=== PATIENT | male | born 1950 | race Caucasian/White ===

== ENCOUNTER → 2021-07-28 09:35 | Outpatient (CLI) | payer SELFPAY ==
[2021-07-28 12:06] LABS: Lithium 0.5 mmol/L (0.6-1.2)
== END ==
PROVIDERS: Referring Provider Psychiatry & Neurology Psychiatry; Visit Provider Psychiatry & Neurology Psychiatry
DX: F31.4 Bipolar disorder, current episode depressed, severe, without psychotic features (principal)
CPT/HCPCS: 36415; 80178

== ENCOUNTER → 2023-01-11 07:30 | Outpatient (CLI) | payer SELFPAY ==
[2023-01-11 08:45] LABS: Cholesterol 98 mg/dL (140-199); HDL Cholesterol 49 mg/dL (40-60); LDL Cholesterol Calculated 27 mg/dL (<100); Triglycerides 108 mg/dL (35-150)
== END ==
PROVIDERS: Referring Provider Internal Medicine Cardiovascular Disease; Visit Provider Internal Medicine Cardiovascular Disease
DX: E78.2 Mixed hyperlipidemia (principal)
CPT/HCPCS: 36415; 80061

== ENCOUNTER → 2024-01-25 07:18 | Outpatient (CLI) | payer MEDICARE, BC, SELFPAY ==
[2024-01-25 08:04] LABS: Hematocrit 43.1 % (41-53); Hemoglobin 14.9 g/dL (13.5-17.5); Mean Corpuscular HGB Conc 34.7 % (30-36); Mean Corpuscular Volume 86.5 fL (80-100); Platelet Count 238 X10^3/uL (150-400); Red Blood Cell Count 4.98 X10^6/uL (4.5-5.9); White Blood Cell Count 8.9 X10^3/uL (4.5-11.0)
[2024-01-25 08:17] LABS: Alanine Aminotransferase 25 IU/L (<50); Albumin 4.3 g/dL (3.5-5.0); Albumin Globulin Ratio 1.8 (1.0-2.8); Alkaline Phosphatase 76 U/L (38-126); Aspartate Aminotransferase 28 IU/L (17-59); Bilirubin Total 1.4 mg/dL (0.2-1.3); Bilirubin Unconjugated 1.1 mg/dL (0.0-1.1); Cholesterol 107 mg/dL (140-199); Globulin 2.4 g/dL (1.7-4.1); Glucose 108 mg/dL (80-110); HDL Cholesterol 48 mg/dL (40-60); HEMOLYSIS < 15 (0-50); LDL Cholesterol Calculated 40 mg/dL (<100); Total Protein 6.7 g/dL (6.3-8.2); Triglycerides 96 mg/dL (35-150)
[2024-01-25 08:27] LABS: Lithium 0.9 mmol/L (0.6-1.2)
== END ==
PROVIDERS: Referring Provider Registered Nurse Psychiatric/Mental Health, Adult; Visit Provider Registered Nurse Psychiatric/Mental Health, Adult
DX: F31.9 Bipolar disorder, unspecified (principal); F41.1 Generalized anxiety disorder
CPT/HCPCS: 36415; 80061; 80076; 80178; 82947; 83036; 85027

== ENCOUNTER → 2024-07-17 07:47 | Outpatient (CLI) | payer MEDICARE, BC, SELFPAY ==
[2024-07-17 08:56] LABS: Add Manual Diff / Slide Review NO; Basophils Absolute Auto 100 /uL (0-100); Basophils Percent Auto 0.9 % (0-2); Eosinophils Absolute Auto 600 /uL (0-450); Hematocrit 43.9 % (41-53); Lymphocytes Absolute Auto 1300 /uL (1100-4500); Lymphocytes Percent Auto 14.5 % (25-40); Mean Corpuscular HGB Conc 34.2 % (30-36); Mean Corpuscular Hemoglobin 30.8 PG (26-34); Mean Corpuscular Volume 89.9 fL (80-100); Monocytes Absolute Auto 700 /uL (0-900); Monocytes Percent Auto 7.7 % (3-14); Neutrophils Absolute Auto 6500 /uL (1500-7000); Neutrophils Percent Auto 69.9 % (50-75); Platelet Count 226 X10^3/uL (150-400); Red Blood Cell Count 4.88 X10^6/uL (4.5-5.9); Red Cell Distribution Width 12.9 % (11.6-14.8); White Blood Cell Count 9.2 X10^3/uL (4.5-11.0)
[2024-07-17 09:17] LABS: Alanine Aminotransferase 44 IU/L (<50); Albumin 4.1 g/dL (3.5-5.0); Albumin Globulin Ratio 1.7 (1.0-2.8); Alkaline Phosphatase 82 U/L (38-126); Aspartate Aminotransferase 36 IU/L (17-59); BUN Creatinine Ratio 20.8 (6-22); Bilirubin Total 1.1 mg/dL (0.2-1.3); Blood Urea Nitrogen 16 mg/dL (9-20); Calcium 9.6 mg/dL (8.4-10.2); Carbon Dioxide 28 mmol/L (22-32); Chloride 105 mmol/L (98-107); Cholesterol 133 mg/dL (140-199); Estimated Glomerular Filt Rate > 60 mL/min (>60); Globulin 2.4 g/dL (1.7-4.1); Glucose 101 mg/dL (80-110); HDL Cholesterol 54 mg/dL (40-60); HEMOLYSIS < 15 (0-50); LDL Cholesterol Calculated 54 mg/dL (<100); Potassium 4.7 mmol/L (3.4-5.1); Sodium 139 mmol/L (137-145); Total Protein 6.5 g/dL (6.3-8.2); Triglycerides 126 mg/dL (35-150)
[2024-07-17 09:20] LABS: Lithium 0.9 mmol/L (0.6-1.2)
[2024-07-17 09:34] LABS: Vitamin D 25 Hydroxy (D3) 39.6 ng/mL (30.0-100.0)
[2024-07-17 11:29] LABS: Appearance Urine UA CLEAR; Bilirubin Urine UA NEGATIVE (NEGATIVE); Color Urine UA YELLOW; Glucose Urine UA NEGATIVE (Negative); Ketones Urine UA NEGATIVE (NEGATIVE); Leukocyte Esterase Urine UA NEGATIVE (NEGATIVE); Nitrite Urine UA NEGATIVE (Negative); Occult Blood Urine UA NEGATIVE (Negative); Protein Urine UA NEGATIVE (Negative); Urobilinogen Urine UA 0.2 E.U./dL (0.2); pH Urine UA 7.5 (4.5-8.0)
[2024-07-17 11:33] LABS: Urine Volume 10mL (spun)
[2024-07-17 11:34] LABS: Bacteria Urine None Seen; Culture Indicated Urine Cult Not Indicated; RBC Urine None Seen (0-5/HPF); Squamous Epithelial Cell Urine None Seen (0-5/HPF); WBC Urine None Seen (0-5/HPF)
== END ==
DX: Z51.81 Encounter for therapeutic drug level monitoring (principal); I25.10 Atherosclerotic heart disease of native coronary artery without angina pectoris; F31.81 Bipolar II disorder; E55.9 Vitamin D deficiency, unspecified; Z95.5 Presence of coronary angioplasty implant and graft; L21.9 Seborrheic dermatitis, unspecified; I48.0 Paroxysmal atrial fibrillation; D72.829 Elevated white blood cell count, unspecified
CPT/HCPCS: 36415; 80053; 80061; 80178; 81001; 82306; 84443; 85025

== ENCOUNTER → 2024-12-30 11:30 | Outpatient (CLI) | payer MEDICARE, BC, SELFPAY ==
--- NOTE | 2024-12-30 11:32 | DI.RAD.S_ITS ---
PROCEDURE: XR CHEST 2V INDICATIONS: Acute cough TECHNIQUE: 2 views of the chest were acquired. COMPARISON: None. FINDINGS: Surgical changes and devices: Prior right shoulder reverse arthroplasty.. Lungs and pleura: Moderate size airspace opacity in right middle lobe is seen. Left lung is clear. No pleural effusions or pneumothorax. Mediastinum: Mediastinal contours are normal. Heart size is normal. Bones and chest wall: No suspicious bony abnormalities. Soft tissues appear unremarkable. IMPRESSION: Moderate to large right middle lobe infiltrate . No significant pleural effusion. No pneumothorax. Dictated by: Matteo Rosario M.D. on 12/30/2024 at 12:03 Approved by: Matteo Rosario M.D. on 12/30/2024 at 12:04
== END ==
PROVIDERS: PCP Family Medicine; Referring Provider Family Medicine; Visit Provider Family Medicine
DX: R05.1 Acute cough (principal); R50.9 Fever, unspecified; R91.8 Other nonspecific abnormal finding of lung field
CPT/HCPCS: 0241U; 71046

== ENCOUNTER → 2024-12-30 12:21 | Outpatient (ROUT) | payer MEDICARE, BC, SELFPAY ==
[2024-12-30 13:01] LABS: COVID-19 CEPHEID 4-PLEX PCR Negative (Negative); Influenza A - CEPHEID Flu A NEGATIVE (NEGATIVE); Influenza B - CEPHEID Flu B NEGATIVE (NEGATIVE); Respiratory Syncytial Virus Negative (Negative)
== END ==
PROVIDERS: PCP Family Medicine; Visit Provider Family Medicine
DX: R50.9 Fever, unspecified (principal); R05.1 Acute cough
CPT/HCPCS: 0241U

== ENCOUNTER 2024-12-31 04:36 | Emergency (ER) | payer MEDICARE, BC, SELFPAY ==
[2024-12-31] VITALS (27 sets, daily range): BP systolic 104–147; BP diastolic 55–77; PULSE 66–93; RESP 14–29; TEMP 36.5–36.6; O2SAT 93–99; BMI 25.8
--- NOTE | 2024-12-31 04:38 | EKG_ITS ---
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
--- NOTE | 2024-12-31 04:47 | ED_ITS ---
HPI - SOB/Dyspnea <Pedro Luis Ma DO - Last Filed: 12/31/24 09:09> General Chief Complaint: Shortness of Breath/Dyspnea Stated Complaint: SOB Time Seen by Provider: 12/31/24 04:39 Source: patient Mode of arrival: Ambulatory Limitations: no limitations History of Present Illness HPI Narrative: 74-year-old gentleman history of hypertension, dyslipidemia, CAD x1 stent, AFib presents with dry nonproductive nonbloody cough along with shortness of breath dyspnea on exertion over the weekend along with fever, chills, and body aches. Of note, had pneumonia week ago. He was seen by PCP yesterday which included a chest x-ray but did not know the results of his studies. He did take some leftover amoxicillin which did not help. Patient denies any active chest pain leg swelling or weight gain at this time. Other than what is stated 14 point review of system is negative Related Data Allergies Allergy/AdvReac Type Severity Reaction Status Date / Time Opioids - Morphine Analogues Allergy ITCHING Verified 12/31/24 06:05 Review of Systems <Pedro Luis Ma DO - Last Filed: 12/31/24 09:09> Review of Systems ROS Unobtainable: All systems reviewed & are unremarkable except as noted in HPI and below Patient History <Pedro Luis Ma DO - Last Filed: 12/31/24 09:09> Social History Smoking Status: Never smoker Smoking Status: Never smoker Exam <Pedro Luis Ma DO - Last Filed: 12/31/24 09:09> Narrative Exam Narrative: GENERAL: [74] year old patient appears stated age. Well-developed patient, in mild distress. HEAD: Atraumatic. Normocephalic. EYES: Pupils equal round and reactive. Extraocular motions intact. No scleral icterus. No injection or drainage. ENT: Nose without bleeding, purulent drainage. Throat without erythema, tonsillar hypertrophy or exudate. Airway patent. NECK: Trachea midline. Non tender CARDIOVASCULAR: Regular rate and rhythm without murmurs, gallops, or rubs. RESPIRATORY: R dry crackles No wheezes, rales, or rhonchi. GASTROINTESTINAL: Abdomen soft, non-tender, nondistended. EXTREMITIES: No edema or joint tenderness. BACK: Nontender without deformity or crepitance. No flank tenderness. NEURO: AOx3. SKIN: No rash or erythema of visible areas Initial Vital Signs Initial Vital Signs: Vital Signs Pulse Rate 76 12/31/24 04:41 Blood Pressure 147/71 H 12/31/24 04:41 Pulse Oximetry 97 12/31/24 04:41 <Yolanda Rouse MD - Last Filed: 12/31/24 15:09> Initial Vital Signs Initial Vital Signs: Vital Signs Pulse Rate 76 12/31/24 04:41 Blood Pressure 147/71 H 12/31/24 04:41 Pulse Oximetry 97 12/31/24 04:41 Course <Pedro Luis Ma DO - Last Filed: 12/31/24 09:09> Orders Ordered: ED Orders 12/31/24 06:54 Procalcitonin Stat Trop I [Troponin I] Stat 12/31/24 07:28 EKG-12 Lead Stat 12/31/24 08:34 EC echo doppler complete Stat 12/31/24 15:00 PTT [PTT Partial Thromboplastin Jass] Stat Discontinued Medications Albuterol/Ipratropium (Albuterol/Ipratropium 3 Ml Ampul) 3 ml INH NOW ONE Stop: 12/31/24 05:02 Last Admin: 12/31/24 05:10 Dose: 3 ml Documented By: ASHLEE Albuterol/Ipratropium (Albuterol/Ipratropium 3 Ml Ampul) 3 ml INH NOW ONE Stop: 12/31/24 05:21 Last Admin: 12/31/24 05:24 Dose: 3 ml Documented By: ASHLEE Aspirin (Aspirin Ec 325 Mg Tablet) 325 mg PO NOW ONE Stop: 12/31/24 06:13 Last Admin: 12/31/24 06:14 Dose: 325 mg Documented By: CLAIR Atorvastatin Calcium (Atorvastatin 20 Mg Tablet) 20 mg PO NOW ONE Stop: 12/31/24 11:17 Last Admin: 12/31/24 11:39 Dose: 20 mg Documented By: TREVER Heparin Sodium (Porcine) (Heparin 5,000 Unit/Ml Vial) 4,500 unit 60 unit/kg (4500 unit) IV NOW ONE Stop: 12/31/24 08:25 Last Admin: 12/31/24 08:48 Dose: 4,500 unit Documented By: ANDRES Ceftriaxone Sodium 1,000 mg/ (Sodium Chloride) 100 mls @ 200 mls/hr IV NOW ONE Stop: 12/31/24 05:02 Last Infusion: 12/31/24 05:41 Dose: Infused Documented By: Admin: 12/31/24 05:11 Dose: 200 mls/hr Documented By: CLAIR Azithromycin 500 mg/ Dextrose 250 mls @ 250 mls/hr IV NOW ONE Stop: 12/31/24 05:02 Last Infusion: 12/31/24 06:56 Dose: Infused Documented By: Admin: 12/31/24 05:40 Dose: 250 mls/hr Documented By: CLAIR Heparin Sodium/Dextrose (Heparin Drip) 25,000 unit in 500 mls @ 17.962 mls/hr IV CONT JAMAR; Protocol Last Titration: 12/31/24 12:36 Dose: 0 units/kg/hr, 0 mls/hr Documented By: TREVER Co-signed By: Admin: 12/31/24 08:49 Dose: 12.03 units/kg/hr, 18 mls/hr Documented By: ANDRES Co-signed By: TREVER Metoprolol Succinate (Metoprolol Er 25 Mg Tablet) 25 mg PO NOW ONE Stop: 12/31/24 11:15 Last Admin: 12/31/24 11:37 Dose: 25 mg Documented By: TREVER Vital Signs Vital signs: Vital Signs - 8 hr 12/31/24 07:29 12/31/24 07:30 12/31/24 07:30 Temperature Pulse Rate 77 76 Respiratory Rate 17 Blood Pressure 120/65 Pulse Oximetry 94 93 12/31/24 08:00 12/31/24 08:00 12/31/24 08:47 Temperature Pulse Rate 78 69 Respiratory Rate 14 Blood Pressure 120/63 Pulse Oximetry 95 12/31/24 09:00 12/31/24 09:30 12/31/24 10:00 Temperature Pulse Rate 71 66 72 Respiratory Rate 19 17 25 H Blood Pressure Pulse Oximetry 96 94 12/31/24 10:30 12/31/24 10:41 12/31/24 10:41 Temperature Pulse Rate 77 74 Respiratory Rate 29 H 16 Blood Pressure 131/73 Pulse Oximetry 96 95 12/31/24 11:00 12/31/24 11:23 12/31/24 11:23 Temperature Pulse Rate 75 71 Respiratory Rate 21 23 Blood Pressure 104/56 L Pulse Oximetry 94 96 12/31/24 11:24 12/31/24 11:30 12/31/24 11:30 Temperature Pulse Rate 68 Respiratory Rate 24 Blood Pressure 104/56 L 107/55 L Pulse Oximetry 95 12/31/24 11:37 12/31/24 11:39 12/31/24 11:39 Temperature Pulse Rate 71 70 Respiratory Rate Blood Pressure 116/65 116/65 Pulse Oximetry 96 12/31/24 12:00 12/31/24 12:00 12/31/24 12:30 Temperature Pulse Rate 74 67 Respiratory Rate 16 Blood Pressure 117/71 Pulse Oximetry 12/31/24 12:30 Temperature 97.7 F Pulse Rate Respiratory Rate Blood Pressure 118/77 Pulse Oximetry 99 <Yolanda Rouse MD - Last Filed: 12/31/24 15:09> Orders Ordered: ED Orders 12/31/24 06:54 Procalcitonin Stat Trop I [Troponin I] Stat 12/31/24 07:28 EKG-12 Lead Stat 12/31/24 08:34 EC echo doppler complete Stat 12/31/24 15:00 PTT [PTT Partial Thromboplastin Jass] Stat Discontinued Medications Albuterol/Ipratropium (Albuterol/Ipratropium 3 Ml Ampul) 3 ml INH NOW ONE Stop: 12/31/24 05:02 Last Admin: 12/31/24 05:10 Dose: 3 ml Documented By: ASHLEE Albuterol/Ipratropium (Albuterol/Ipratropium 3 Ml Ampul) 3 ml INH NOW ONE Stop: 12/31/24 05:21 Last Admin: 12/31/24 05:24 Dose: 3 ml Documented By: ASHLEE Aspirin (Aspirin Ec 325 Mg Tablet) 325 mg PO NOW ONE Stop: 12/31/24 06:13 Last Admin: 12/31/24 06:14 Dose: 325 mg Documented By: CLAIR Atorvastatin Calcium (Atorvastatin 20 Mg Tablet) 20 mg PO NOW ONE Stop: 12/31/24 11:17 Last Admin: 12/31/24 11:39 Dose: 20 mg Documented By: TREVER Heparin Sodium (Porcine) (Heparin 5,000 Unit/Ml Vial) 4,500 unit 60 unit/kg (4500 unit) IV NOW ONE Stop: 12/31/24 08:25 Last Admin: 12/31/24 08:48 Dose: 4,500 unit Documented By: ANDRES Ceftriaxone Sodium 1,000 mg/ (Sodium Chloride) 100 mls @ 200 mls/hr IV NOW ONE Stop: 12/31/24 05:02 Last Infusion: 12/31/24 05:41 Dose: Infused Documented By: Admin: 12/31/24 05:11 Dose: 200 mls/hr Documented By: CLAIR Azithromycin 500 mg/ Dextrose 250 mls @ 250 mls/hr IV NOW ONE Stop: 12/31/24 05:02 Last Infusion: 12/31/24 06:56 Dose: Infused Documented By: Admin: 12/31/24 05:40 Dose: 250 mls/hr Documented By: CLAIR Heparin Sodium/Dextrose (Heparin Drip) 25,000 unit in 500 mls @ 17.962 mls/hr IV CONT JAMAR; Protocol Last Titration: 12/31/24 12:36 Dose: 0 units/kg/hr, 0 mls/hr Documented By: TREVER Co-signed By: Admin: 12/31/24 08:49 Dose: 12.03 units/kg/hr, 18 mls/hr Documented By: ANDRES Co-signed By: TREVER Metoprolol Succinate (Metoprolol Er 25 Mg Tablet) 25 mg PO NOW ONE Stop: 12/31/24 11:15 Last Admin: 12/31/24 11:37 Dose: 25 mg Documented By: TREVER Vital Signs Vital signs: Vital Signs - 8 hr 12/31/24 07:29 12/31/24 07:30 12/31/24 07:30 Temperature Pulse Rate 77 76 Respiratory Rate 17 Blood Pressure 120/65 Pulse Oximetry 94 93 12/31/24 08:00 12/31/24 08:00 12/31/24 08:47 Temperature Pulse Rate 78 69 Respiratory Rate 14 Blood Pressure 120/63 Pulse Oximetry 95 12/31/24 09:00 12/31/24 09:30 12/31/24 10:00 Temperature Pulse Rate 71 66 72 Respiratory Rate 19 17 25 H Blood Pressure Pulse Oximetry 96 94 12/31/24 10:30 12/31/24 10:41 12/31/24 10:41 Temperature Pulse Rate 77 74 Respiratory Rate 29 H 16 Blood Pressure 131/73 Pulse Oximetry 96 95 12/31/24 11:00 12/31/24 11:23 12/31/24 11:23 Temperature Pulse Rate 75 71 Respiratory Rate 21 23 Blood Pressure 104/56 L Pulse Oximetry 94 96 12/31/24 11:24 12/31/24 11:30 12/31/24 11:30 Temperature Pulse Rate 68 Respiratory Rate 24 Blood Pressure 104/56 L 107/55 L Pulse Oximetry 95 12/31/24 11:37 12/31/24 11:39 12/31/24 11:39 Temperature Pulse Rate 71 70 Respiratory Rate Blood Pressure 116/65 116/65 Pulse Oximetry 96 12/31/24 12:00 12/31/24 12:00 12/31/24 12:30 Temperature Pulse Rate 74 67 Respiratory Rate 16 Blood Pressure 117/71 Pulse Oximetry 12/31/24 12:30 Temperature 97.7 F Pulse Rate Respiratory Rate Blood Pressure 118/77 Pulse Oximetry 99 MDM - SOB/Dyspnea <Pedro Luis Ma, DO - Last Filed: 12/31/24 09:09> Lab Data 12/31/24 04:52 12/31/24 04:52 Labs: Lab Results 12/31/24 12/31/24 Range/Units 04:52 06:54 WBC 18.3 H (4.5-11.0) X10^3/uL RBC 4.53 (4.5-5.9) X10^6/uL Hgb 13.6 (13.5-17.5) g/dL Hct 39.4 L (41-53) % MCV 86.8 (80-100) fL MCH 30.1 (26-34) PG MCHC 34.7 (30-36) % RDW 13.1 (11.6-14.8) % Plt Count 156 (150-400) X10^3/uL Neut % (Auto) 87.5 H (50-75) % Lymph % (Auto) 5.4 L (25-40) % Crowley % (Auto) 4.2 (3-14) % Eos % (Auto) 2.3 (2-4) % Baso % (Auto) 0.6 (0-2) % Neut # (Auto) 17812 H (0627-0452) /uL Lymph # (Auto) 1000 L (5886-7906) /uL Crowley # (Auto) 800 (0-900) /uL Eos # (Auto) 400 (0-450) /uL Baso # (Auto) 100 (0-100) /uL PT 11.1 (9.4-12.5) SECONDS INR 1.0 (0.9-1.3) APTT 38 H (25.1-36.5) SECONDS Sodium 137 (137-145) mmol/L Potassium 3.5 (3.4-5.1) mmol/L Chloride 106 (98-107) mmol/L Carbon Dioxide 23 (22-32) mmol/L BUN 19 (9-20) mg/dL Creatinine 0.85 (0.66-1.25) mg/dL Estimated GFR > 60 (>60) mL/min BUN/Creatinine Ratio 22.4 H (6-22) Glucose 111 H (70-99) mg/dL Lactate 0.9 (0.7-2.1) mmol/L Calcium 8.8 (8.4-10.2) mg/dL Magnesium 2.0 (1.6-2.3) mg/dL Total Bilirubin 1.5 H (0.2-1.3) mg/dL AST 33 (17-59) IU/L ALT 37 (<50) IU/L Alkaline Phosphatase 107 (38-126) U/L Total Creatine Kinase 25 L (55-170) U/L Troponin I 0.068 H 0.145 H* (0.01-0.034) ng/mL NT-Pro-B Natriuret Pep 361 (<450) pg/mL Total Protein 6.3 (6.3-8.2) g/dL Albumin 3.4 L (3.5-5.0) g/dL Globulin 2.9 (1.7-4.1) g/dL Albumin/Globulin Ratio 1.2 (1.0-2.8) Lipase 35 (23-300) U/L Procalcitonin 9.91 H (<0.5) ng/mL Imaging Data Chest x-ray: Radiologist's Impression: [address] [address] XRay Report Signed Patient: Malka Gomez MR#: [id number] : 1950 Acct:[id number] Age/Sex: 74 / M Date of Service: 12/30/24 Loc: RAD Accession Number: [id number] Procedure: XR chest 2V Ordering Provider: Rolly Yee MD PROCEDURE: XR CHEST 2V INDICATIONS: Acute cough TECHNIQUE: 2 views of the chest were acquired. COMPARISON: None. FINDINGS: Surgical changes and devices: Prior right shoulder reverse arthroplasty.. Lungs and pleura: Moderate size airspace opacity in right middle lobe is seen. Left lung is clear. No pleural effusions or pneumothorax. Mediastinum: Mediastinal contours are normal. Heart size is normal. Bones and chest wall: No suspicious bony abnormalities. Soft tissues appear unremarkable. IMPRESSION: Moderate to large right middle lobe infiltrate . No significant pleural effusion. No pneumothorax. Dictated by: Matteo Rosario M.D. on 12/30/2024 at 12:03 Approved by: Matteo Rosario M.D. on 12/30/2024 at 12:04 ECG Data Interpretation: NSR RBBB HR 75 HI 150 QRS [address]-t wave change MDM Narrative Medical decision making narrative: All lab work, vital signs, nurse triage note, medication list, EKG, and imaging studies all reviewed. Patient given 2 DuoNebs Rocephin 1 g 500 of Zithromax IV and aspirin 325 mg p.o. x1 patient has no active chest pain but only when he coughs. [place] [address] with a left shift, troponin of 0.068 BNP is 361. EKG showed heart rate of 75 normal sinus rhythm with a right bundle branch block but otherwise no ST-T wave changes. Chest x-ray completed showing right middle and lower lobe pulmonary infiltrate consistent with pneumonia. Differential diagnosis includes pneumonia, sepsis, type 2 [place], COVID, Flu, and RSV. Case signed out to to at shift change pending final disposition. <Yolanda Rouse MD - Last Filed: 12/31/24 15:09> Lab Data Labs: Lab Results 12/31/24 12/31/24 Range/Units 04:52 06:54 WBC 18.3 H (4.5-11.0) X10^3/uL RBC 4.53 (4.5-5.9) X10^6/uL Hgb 13.6 (13.5-17.5) g/dL Hct 39.4 L (41-53) % MCV 86.8 (80-100) fL MCH 30.1 (26-34) PG MCHC 34.7 (30-36) % RDW 13.1 (11.6-14.8) % Plt Count 156 (150-400) X10^3/uL Neut % (Auto) 87.5 H (50-75) % Lymph % (Auto) 5.4 L (25-40) % Crowley % (Auto) 4.2 (3-14) % Eos % (Auto) 2.3 (2-4) % Baso % (Auto) 0.6 (0-2) % Neut # (Auto) 42483 H (9294-5236) /uL Lymph # (Auto) 1000 L (6804-5498) /uL Crowley # (Auto) 800 (0-900) /uL Eos # (Auto) 400 (0-450) /uL Baso # (Auto) 100 (0-100) /uL PT 11.1 (9.4-12.5) SECONDS INR 1.0 (0.9-1.3) APTT 38 H (25.1-36.5) SECONDS Sodium 137 (137-145) mmol/L Potassium 3.5 (3.4-5.1) mmol/L Chloride 106 (98-107) mmol/L Carbon Dioxide 23 (22-32) mmol/L BUN 19 (9-20) mg/dL Creatinine 0.85 (0.66-1.25) mg/dL Estimated GFR > 60 (>60) mL/min BUN/Creatinine Ratio 22.4 H (6-22) Glucose 111 H (70-99) mg/dL Lactate 0.9 (0.7-2.1) mmol/L Calcium 8.8 (8.4-10.2) mg/dL Magnesium 2.0 (1.6-2.3) mg/dL Total Bilirubin 1.5 H (0.2-1.3) mg/dL AST 33 (17-59) IU/L ALT 37 (<50) IU/L Alkaline Phosphatase 107 (38-126) U/L Total Creatine Kinase 25 L (55-170) U/L Troponin I 0.068 H 0.145 H* (0.01-0.034) ng/mL NT-Pro-B Natriuret Pep 361 (<450) pg/mL Total Protein 6.3 (6.3-8.2) g/dL Albumin 3.4 L (3.5-5.0) g/dL Globulin 2.9 (1.7-4.1) g/dL Albumin/Globulin Ratio 1.2 (1.0-2.8) Lipase 35 (23-300) U/L Procalcitonin 9.91 H (<0.5) ng/mL Imaging Data Chest x-ray from today: Radiologist's Impression: [address] [address] XRay Report Signed Patient: Malka Gomez MR#: [id number] : 1950 Acct:[id number] Age/Sex: 74 / M Date of Service: 12/31/24 Loc: ED Accession Number: [id number] Procedure: XR chest 1V Ordering Provider: Pedro Luis Ma D.O. PROCEDURE: XR CHEST 1V INDICATIONS: Chest Pain TECHNIQUE: One view of the chest was acquired. COMPARISON: [facility], , XR CHEST 2V, 12/30/2024, 11:28. FINDINGS: Surgical changes and devices: Right shoulder reverse arthroplasty. ACDF. Lungs and pleura: Right middle lobe consolidation is not significantly changed. No pleural effusions or pneumothorax. Mediastinum: Mediastinal contours appear normal. Heart size is normal. Bones and chest wall: No suspicious bony lesions. Overlying soft tissues appear unremarkable. IMPRESSION: Right middle lobe consolidation, unchanged. Recommend follow-up to resolution. CT chest with IV contrast may be helpful for further evaluation, especially if the patient has a smoking history. Dictated by: Deshawn Russell M.D. on 12/31/2024 at 7:59 Approved by: Deshawn Russell M.D. on 12/31/2024 at 8:01 Echocardiogram: Radiologist's Impression: [address] [address] Echocardiography Report Signed Patient: Malka Gomez MR#: [id number] : 1950 Acct:[id number] Age/Sex: 74 / M Date of Service: 12/31/24 Loc: ED Accession Number: [id number] Procedure: EC echo doppler complete Ordering Provider: Yolanda Rouse MD [facility] : : [address] [place] [address]. : : [place], [place] : : [address] : : Phone: [phone] Echocardiogram Report + + :Name: MALKA GOMEZ Study Date: 12/31/2024 Height: 67 in : :[facility] ReadingLocation: Weight: 165 lb : : Gender: Male BSA: 1.9 m2 : :: 1950 Age: 74 yrs BP: 120/63 mmHg: :Reason For Study: DYSPNEA : :Ordering Physician: PADMA, : :YOLANDA Performed By: Daily Trammell : :Referring: YOLANDA ROUSE : + + Interpretation Summary 1) Normal left ventricular thickness, size, wall motion, and systolic function (EF 60-65%). 2) Normal right ventricular size and function. 3) There is mild aortic regurgitation. 4) No prior Echo available for comparison. Procedure: A two-dimensional transthoracic echocardiogram with color flow and Doppler was performed. The study quality was technically adequate. There is no prior echocardiogram noted for this patient. The patient was in sinus rhythm with heart rates between 62-68 bpm during the exam. Left Ventricle: The left ventricle is normal in size and wall thickness. The ejection fraction is estimated to be 60-65%. Left ventricular systolic function appears normal without focal wall motion abnormalities. Right Ventricle: The right ventricle is normal in size and function. Atria: The left atrial size is normal. Right atrial size is normal. There is no Doppler evidence for an interatrial shunt. Mitral Valve: The mitral valve leaflets appear mildly thickened, but open well. There is mild mitral annular calcification. There is no mitral regurgitation noted. Aortic Valve: The aortic valve opens well. The aortic valve is trileaflet. There is no aortic valve stenosis. There is mild aortic regurgitation. Tricuspid Valve: The tricuspid valve leaflets are thin and pliable. There is trace tricuspid regurgitation. Pulmonary artery pressures cannot be estimated because of the lack of a measurable TR jet velocity. Pulmonic Valve: The pulmonic valve leaflets are thin and pliable; valve motion is normal. There is no pulmonic valvular regurgitation. Great Vessels: The aortic root is borderline dilated. The dimensions of the ascending aorta are normal. The IVC is of normal diameter and collapses greater than 50% with a sniff. This suggests a low right atrial pressure of 3 mm Hg. Pericardium/ Pleura There is no pericardial effusion. There is no pleural effusion. MMode/2D Measurements & Calculations LVIDd: 5.0 cm LVOT diam: 2.2 cm LVIDs: 3.8 cm Ao root diam: 4.0 cm FS: 25.5 % asc Aorta Diam: 3.7 cm IVSd: 1.2 cm Ao Arch Diam (Prox Trans): 3.3 cm LVPWd: 0.85 cm LV meza. diameter/BSA (cm/m^2): 2.7 LV sys. diameter/BSA (cm/m^2): 2.0 LA A2 area: 22.5 cm2 RA long axis: 5.2 cm LA A4 area: 18.4 cm2 RA area: 17.6 cm2 LA length (vol): 6.1 cm RA vol: 50.9 ml LA vol: 57.8 ml RA : 27.3 ml/m2 LA vol index: 31.0 ml/m2 IVC diam: 1.6 cm RVD1 (basal): 3.6 cm TAPSE: 2.3 cm Doppler Measurements & Calculations Ao V2 max: 194.7 cm/sec LVOT Max Giovanni: 117.6 cm/sec Ao V2 mean: 131.1 cm/sec LV V1 max P.5 mmHg Ao max P.2 mmHg LV V1 VTI: 23.5 cm Ao mean P.8 mmHg NANCY(I,D): 2.1 cm2 Ao V2 VTI: 40.2 cm NANCY(V,D): 2.2 cm2 sev ratio: 0.58 NANCY indexed to BSA (cm^2/m^2): 1.1 MV E max giovanni: 64.4 cm/sec PA V2 max: 94.4 cm/sec MV A max giovanni: 77.3 cm/sec PA V2 mean: 64.8 cm/sec MV E/A: 0.83 PA mean P.9 mmHg Med Peak E' Giovanni: 6.8 cm/sec PA pr(Accel): 19.9 mmHg E/E' med: 9.4 Lat Peak E' Giovanni: 8.7 cm/sec E/E' lat: 7.4 E/e' average: 8.4 MV dec time: 0.21 sec SV(LVOT): 86.0 ml Reading Physician:10:52 AM CARLOS Narrative Medical decision making narrative: All lab work, vital signs, nurse triage note, medication list, EKG, and imaging studies all reviewed. Patient given 2 DuoNebs Rocephin 1 g 500 of Zithromax IV and aspirin 325 mg p.o. x1 patient has no active chest pain but only when he coughs. [place] [address] with a left shift, troponin of 0.068 BNP is 361. EKG showed heart rate of 75 normal sinus rhythm with a right bundle branch block but otherwise no ST-T wave changes. Chest x-ray completed showing right middle and lower lobe pulmonary infiltrate consistent with pneumonia. Differential diagnosis includes pneumonia, sepsis, type 2 [place], COVID, Flu, and RSV. Case signed out to to at shift change pending final disposition. December 31, 2024 at 7:[address] Rouse: Sinus from Dr. Ma, 2nd troponin is pending. No chest pain at this time. Will need transfer or admission. Cardiology service will need to be contacted. Antibiotics have been started. Aspirin has been given. Currently no chest pain. Breathing treatment provided as well. 7:15 a.m.. I introduced myself to patient. Denies any chest pain at this time. Symptoms started over the weekend. Has history of [place] and stent in 2022 in [place]. Does not have cardiology services here. He does understand he will be admitted here or transferred pending on the repeat troponin. If elevation or higher troponin he will need to be transferred WBC 18.3 hemoglobin 13.6 troponin 0.06 and then repeat 0.145, procalcitonin 9.91 lactic acid 0.9 Repeat EKG at 7:33 a.m. normal sinus rhythm right bundle-branch block no ST elevation. Rate 77. Patient denies any chest pain. Awaiting for cardiology services to call back. 8:25 a.m.. Still no call back from cardiology services. Heparin has been ordered. 8:[address] Wilkinson from [facility] did call back. On-call for [facility] director did not call back. She agrees that patient should be transferred to [facility] under hospitalist service, echocardiogram to be ordered here. No immediate heart catheterization indicated right now. But patient would be best suited to be at [facility] in case 1 needs to be done 9:08 a.m.. Spoke with [facility], spoke with nurse practitioner Aissatou Wan, she will accept for hospitalist team for Dr. Vazquez. Discussion: Appropriate for transfer higher level of care. Patient will need cardiac services in case he needs heart catheterization. That is not available here. Antibiotics have been started. Patient not requiring supplemental oxygen. Heparin has been started. Cardiology services has been consulted. Receiving [facility] provider contacted. Patient denies any chest pain during course of stay. Diagnosis: Non-STEMI, community-acquired pneumonia. Critical Care Time <Yolanda Rouse MD - Last Filed: 12/31/24 15:09> Critical Care Time Attestation: Critical Care Time 35 minutes: Critical care time is separate from other billable procedures. This critical care time includes consultation with family and other consulting doctors, review of records, and interpretation of data from labs, EKGs, imaging, etc. Discharge Plan Departure Patient Disposition: [facility] Clinical Impression: Non-ST elevated myocardial infarction (non-STEMI) Community acquired pneumonia Qualifiers: Laterality: unspecified laterality Qualified Code(s): J18.9 - Pneumonia, unspecified organism Referrals: Hortensia Feliz MD [Primary Care Provider] -
--- NOTE | 2024-12-31 04:50 | DI.RAD.S_ITS ---
PROCEDURE: XR CHEST 1V INDICATIONS: Chest Pain TECHNIQUE: One view of the chest was acquired. COMPARISON: [facility], CR, XR CHEST 2V, 12/30/2024, 11:28. FINDINGS: Surgical changes and devices: Right shoulder reverse arthroplasty. ACDF. Lungs and pleura: Right middle lobe consolidation is not significantly changed. No pleural effusions or pneumothorax. Mediastinum: Mediastinal contours appear normal. Heart size is normal. Bones and chest wall: No suspicious bony lesions. Overlying soft tissues appear unremarkable. IMPRESSION: Right middle lobe consolidation, unchanged. Recommend follow-up to resolution. CT chest with IV contrast may be helpful for further evaluation, especially if the patient has a smoking history. Dictated by: Deshawn Russell M.D. on 12/31/2024 at 7:59 Approved by: Deshawn Russell M.D. on 12/31/2024 at 8:01
[2024-12-31 05:02] LABS: Add Manual Diff / Slide Review NO; Basophils Absolute Auto 100 /uL (0-100); Basophils Percent Auto 0.6 % (0-2); Eosinophils Absolute Auto 400 /uL (0-450); Eosinophils Percent Auto 2.3 % (2-4); Hematocrit 39.4 % (41-53); Hemoglobin 13.6 g/dL (13.5-17.5); Lymphocytes Absolute Auto 1000 /uL (1100-4500); Lymphocytes Percent Auto 5.4 % (25-40); Mean Corpuscular HGB Conc 34.7 % (30-36); Mean Corpuscular Hemoglobin 30.1 PG (26-34); Mean Corpuscular Volume 86.8 fL (80-100); Monocytes Absolute Auto 800 /uL (0-900); Monocytes Percent Auto 4.2 % (3-14); Neutrophils Absolute Auto 16000 /uL (1500-7000); Neutrophils Percent Auto 87.5 % (50-75); Platelet Count 156 X10^3/uL (150-400); Red Blood Cell Count 4.53 X10^6/uL (4.5-5.9); Red Cell Distribution Width 13.1 % (11.6-14.8); White Blood Cell Count 18.3 X10^3/uL (4.5-11.0)
[2024-12-31] MEDS: ALBUTEROL/IPRATROPIUM 3 ML AMPUL INH ×2 (05:10→05:24)
[2024-12-31] MEDS: cefTRIAXone 1,000 MG in SODIUM CHLORIDE 0.9% 100 ML 200 MG IV (05:11)
[2024-12-31 05:14] LABS: Prothrombin Time 11.1 SECONDS (9.4-12.5)
[2024-12-31 05:16] LABS: PTT Partial Thromboplastin Tim 38 SECONDS (25.1-36.5)
[2024-12-31 05:18] LABS: Lactate (Lactic Acid) 0.9 mmol/L (0.7-2.1)
[2024-12-31 05:19] LABS: Alanine Aminotransferase 37 IU/L (<50); Albumin 3.4 g/dL (3.5-5.0); Albumin Globulin Ratio 1.2 (1.0-2.8); Alkaline Phosphatase 107 U/L (38-126); Aspartate Aminotransferase 33 IU/L (17-59); BUN Creatinine Ratio 22.4 (6-22); Bilirubin Total 1.5 mg/dL (0.2-1.3); Blood Urea Nitrogen 19 mg/dL (9-20); Calcium 8.8 mg/dL (8.4-10.2); Carbon Dioxide 23 mmol/L (22-32); Chloride 106 mmol/L (98-107); Creatine Kinase 25 U/L (55-170); Estimated Glomerular Filt Rate > 60 mL/min (>60); Globulin 2.9 g/dL (1.7-4.1); Glucose 111 mg/dL (70-99); HEMOLYSIS < 15 (0-50); Lipase 35 U/L (23-300); Potassium 3.5 mmol/L (3.4-5.1); Sodium 137 mmol/L (137-145); Total Protein 6.3 g/dL (6.3-8.2)
[2024-12-31 05:30] LABS: NT-proBNP (BNP-Adult 18+) 361 pg/mL (<450); Troponin I 0.068 ng/mL (0.01-0.034)
[2024-12-31] MEDS: AZITHROMYCIN 500 MG in DEXTROSE 5% IN WATER 250 ML 250 MG IV (05:40)
[2024-12-31] MEDS: ASPIRIN EC 325 MG TABLET PO (06:14)
[2024-12-31 07:27] LABS: Troponin I 0.145 ng/mL (0.01-0.034)
[2024-12-31 07:30] LABS: Procalcitonin 9.91 ng/mL (<0.5)
--- NOTE | 2024-12-31 07:33 | EKG_ITS ---
[place] [address] [place] [id number] Test Date: 2024-12-31 Pat Name: Jose Gomez Department: Room: Gender: Male Market Research Coordinator: EMRE : 1950 Requested By: Order Number: [id number] Reading MD: Pedro Luis Kapoor MD Measurements Intervals [place] Rate: 77 P: 33 MT: 152 QRS: 10 QRSD: 142 T: -6 QT: 420 QTc: 475 Interpretive Statements Normal sinus rhythm Right bundle branch block (old) T wave abnormality, consider inferior ischemia Electronically Signed On 12-31-2024 8:52:44 PDT by Pedro Luis Kapoor MD
--- NOTE | 2024-12-31 08:34 | DI.ECHO.S_ITS ---
[place] : : [address] : : [place] : : [id number] : : Phone: [phone] Echocardiogram Report + + :Name: MALKA MENEZES Study Date: 12/31/2024 Height: 67 in : :Hospital ReadingLocation: Weight: 165 lb : : Gender: Male BSA: 1.9 m2 : :: 1950 Age: 74 yrs BP: 120/63 mmHg: :Reason For Study: DYSPNEA : :Ordering Physician: PADMA, : :YOLANDA Performed By: Dialy Trammell : :Referring: YOLANDA ROUSE : + + Interpretation Summary 1) Normal left ventricular thickness, size, wall motion, and systolic function (EF 60-65%). 2) Normal right ventricular size and function. 3) There is mild aortic regurgitation. 4) No prior Echo available for comparison. Procedure: A two-dimensional transthoracic echocardiogram with color flow and Doppler was performed. The study quality was technically adequate. There is no prior echocardiogram noted for this patient. The patient was in sinus rhythm with heart rates between 62-68 bpm during the exam. Left Ventricle: The left ventricle is normal in size and wall thickness. The ejection fraction is estimated to be 60-65%. Left ventricular systolic function appears normal without focal wall motion abnormalities. Right Ventricle: The right ventricle is normal in size and function. Atria: The left atrial size is normal. Right atrial size is normal. There is no Doppler evidence for an interatrial shunt. Mitral Valve: The mitral valve leaflets appear mildly thickened, but open well. There is mild mitral annular calcification. There is no mitral regurgitation noted. Aortic Valve: The aortic valve opens well. The aortic valve is trileaflet. There is no aortic valve stenosis. There is mild aortic regurgitation. Tricuspid Valve: The tricuspid valve leaflets are thin and pliable. There is trace tricuspid regurgitation. Pulmonary artery pressures cannot be estimated because of the lack of a measurable TR jet velocity. Pulmonic Valve: The pulmonic valve leaflets are thin and pliable; valve motion is normal. There is no pulmonic valvular regurgitation. Great Vessels: The aortic root is borderline dilated. The dimensions of the ascending aorta are normal. The IVC is of normal diameter and collapses greater than 50% with a sniff. This suggests a low right atrial pressure of 3 mm Hg. Pericardium/ Pleura There is no pericardial effusion. There is no pleural effusion. MMode/2D Measurements & Calculations LVIDd: 5.0 cm LVOT diam: 2.2 cm LVIDs: 3.8 cm Ao root diam: 4.0 cm FS: 25.5 % asc Aorta Diam: 3.7 cm IVSd: 1.2 cm Ao Arch Diam (Prox Trans): 3.3 cm LVPWd: 0.85 cm LV meza. diameter/BSA (cm/m^2): 2.7 LV sys. diameter/BSA (cm/m^2): 2.0 LA A2 area: 22.5 cm2 RA long axis: 5.2 cm LA A4 area: 18.4 cm2 RA area: 17.6 cm2 LA length (vol): 6.1 cm RA vol: 50.9 ml LA vol: 57.8 ml RA : 27.3 ml/m2 LA vol index: 31.0 ml/m2 IVC diam: 1.6 cm RVD1 (basal): 3.6 cm TAPSE: 2.3 cm Doppler Measurements & Calculations Ao V2 max: 194.7 cm/sec LVOT Max Giovanni: 117.6 cm/sec Ao V2 mean: 131.1 cm/sec LV V1 max P.5 mmHg Ao max P.2 mmHg LV V1 VTI: 23.5 cm Ao mean P.8 mmHg NANCY(I,D): 2.1 cm2 Ao V2 VTI: 40.2 cm NANCY(V,D): 2.2 cm2 sev ratio: 0.58 NANCY indexed to BSA (cm^2/m^2): 1.1 MV E max goivanni: 64.4 cm/sec PA V2 max: 94.4 cm/sec MV A max giovanni: 77.3 cm/sec PA V2 mean: 64.8 cm/sec MV E/A: 0.83 PA mean P.9 mmHg Med Peak E' Giovanni: 6.8 cm/sec PA pr(Accel): 19.9 mmHg E/E' med: 9.4 Lat Peak E' Giovanni: 8.7 cm/sec E/E' lat: 7.4 E/e' average: 8.4 MV dec time: 0.21 sec SV(LVOT): 86.0 ml Reading Physician:10:52 AM
[2024-12-31] MEDS: HEPARIN 5,000 UNIT/ML VIAL 4500 UNIT IV (08:48)
[2024-12-31] MEDS: HEPARIN DRIP 25,000 UNIT/500 ML IV.SOLN 18 UNIT IV (08:49)
--- NOTE | 2024-12-31 10:00 | PC.NURSE ---
Pt reports his was sick with pneumonia a week ago; states she has improved. Pt reports he has been sick for 2 days. Reports body aches, denies chest pain, endorses SOB/cough but able to ambulate and tolerate room air. Respirations regular and unlabored. Pt denies headaches.
--- NOTE | 2024-12-31 10:03 | PC.NURSE ---
Neurologically intact; Pupils round equal reactive. Pupils 3mm. Speech clear. Denies headaches. Pt gait WNL; no walking aides used.
[2024-12-31] MEDS: METOPROLOL ER 25 MG TABLET PO (11:37)
[2024-12-31] MEDS: ATORVASTATIN 20 MG TABLET PO (11:39)
--- NOTE | 2024-12-31 12:47 | PC.NURSE ---
Attempted to call [facility] for report twice; phone rang. no answer. phone disconnected.
== END 2024-12-31 12:49 | disposition short-term general hospital (02) ==
PROVIDERS: Family Medicine; Emergency Provider Emergency Medicine; PCP Family Medicine
DX: I21.4 Non-ST elevation (NSTEMI) myocardial infarction (principal); J18.9 Pneumonia, unspecified organism; I25.2 Old myocardial infarction; I25.10 Atherosclerotic heart disease of native coronary artery without angina pectoris; I10 Essential (primary) hypertension; Z95.5 Presence of coronary angioplasty implant and graft
CPT/HCPCS: 36415; 71045; 80053; 82550; 83605; 83690; 83735; 83880; 84145; 84484; 85025; 85610; 85730; 87040; 93005; 93010; 93306; 94640; 96365; 96366; 96367; 99284; 99291; J0696; J1644

== ENCOUNTER 2025-01-07 04:55 | Emergency (ER) | payer MEDICARE, BC, SELFPAY ==
[2025-01-07] VITALS (7 sets, daily range): BP systolic 111–159; BP diastolic 57–76; PULSE 64–86; RESP 16–24; TEMP 36.8; O2SAT 91–95; BMI 25.8
--- NOTE | 2025-01-07 04:56 | DI.RAD.S_ITS ---
PROCEDURE: XR CHEST 1V INDICATIONS: Chest Pain TECHNIQUE: One view of the chest was acquired. COMPARISON: [facility], CR, XR CHEST 1V, 12/31/2024, 4:50. FINDINGS: Surgical changes and devices: Right reverse total shoulder arthroplasty. Atrial appendage occlusion device. Lungs and pleura: Right mid lung zone opacities and decreased when compared to the radiographs 12/31/2024. Trace right pleural effusion. Left lung is clear. No pneumothorax. Mediastinum: Mediastinal contours appear normal. Heart size is normal. Bones and chest wall: No suspicious bony lesions. Overlying soft tissues appear unremarkable. IMPRESSION: Decreased right mid lung zone opacities. Suspected trace right pleural effusion. There is no significant discrepancy when compared to the overnight preliminary report. Approved by: Neftali Martinez M.D. on 01/07/2025 at 7:59
--- NOTE | 2025-01-07 05:02 | EKG_ITS ---
[facility] [address], [place] [address] Test Date: 2025-01-07 Pat Name: Jose Gomez Department: [facility] Room: Gender: Male Customer Service Dispatcher: PERLA JERONIMO : 1950 Requested By: Order Number: [id number] Reading MD: Pedro Luis Kapoor MD Measurements Intervals [place] Rate: 68 P: 48 OR: 154 QRS: 4 QRSD: 136 T: -1 QT: 434 QTc: 461 Interpretive Statements Normal sinus rhythm Possible Left atrial enlargement Right bundle branch block (old) Electronically Signed On 01-07-2025 7:43:48 PDT by Pedro Luis Kapoor MD
--- NOTE | 2025-01-07 05:02 | EKG_ITS ---
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
[2025-01-07 05:11] LABS: Add Manual Diff / Slide Review NO; Basophils Absolute Auto 100 /uL (0-100); Basophils Percent Auto 0.8 % (0-2); Eosinophils Absolute Auto 400 /uL (0-450); Eosinophils Percent Auto 2.6 % (2-4); Hematocrit 44.4 % (41-53); Hemoglobin 15.3 g/dL (13.5-17.5); Lymphocytes Absolute Auto 2000 /uL (1100-4500); Lymphocytes Percent Auto 13.3 % (25-40); Mean Corpuscular HGB Conc 34.5 % (30-36); Mean Corpuscular Hemoglobin 30.2 PG (26-34); Mean Corpuscular Volume 87.7 fL (80-100); Monocytes Absolute Auto 800 /uL (0-900); Monocytes Percent Auto 5.3 % (3-14); Neutrophils Absolute Auto 11800 /uL (1500-7000); Platelet Count 397 X10^3/uL (150-400); Red Blood Cell Count 5.06 X10^6/uL (4.5-5.9); Red Cell Distribution Width 12.9 % (11.6-14.8); White Blood Cell Count 15.1 X10^3/uL (4.5-11.0)
[2025-01-07 05:20] LABS: Prothrombin Time 11.6 SECONDS (9.4-12.5)
[2025-01-07 05:23] LABS: PTT Partial Thromboplastin Tim 42 SECONDS (25.1-36.5)
[2025-01-07 05:24] LABS: Lactate (Lactic Acid) 0.8 mmol/L (0.7-2.1)
[2025-01-07 05:25] LABS: Alanine Aminotransferase 47 IU/L (<50); Albumin 4.1 g/dL (3.5-5.0); Albumin Globulin Ratio 1.4 (1.0-2.8); Alkaline Phosphatase 110 U/L (38-126); Aspartate Aminotransferase 31 IU/L (17-59); BUN Creatinine Ratio 18.1 (6-22); Bilirubin Total 0.9 mg/dL (0.2-1.3); Blood Urea Nitrogen 15 mg/dL (9-20); Calcium 9.3 mg/dL (8.4-10.2); Carbon Dioxide 27 mmol/L (22-32); Chloride 105 mmol/L (98-107); Creatine Kinase 21 U/L (55-170); Estimated Glomerular Filt Rate > 60 mL/min (>60); Glucose 108 mg/dL (70-99); HEMOLYSIS < 15 (0-50); Lipase 49 U/L (23-300); Magnesium 2.2 mg/dL (1.6-2.3); Potassium 4.2 mmol/L (3.4-5.1); Sodium 139 mmol/L (137-145); Total Protein 7.1 g/dL (6.3-8.2)
--- NOTE | 2025-01-07 05:29 | ED_ITS ---
HPI - General Adult General Chief complaint: Shortness of Breath/Dyspnea Stated complaint: SOB, Chest Pain Time Seen by Provider: 01/07/25 05:05 Source: patient Mode of arrival: Ambulatory History of Present Illness HPI narrative: 74-year-old male with history of of bipolar disorder, atrial fibrillation status post Watchman no longer on anticoagulation, hypertension, hyperlipidemia. He was recently admitted to [facility] after initial evaluation Located [facility] showing right-sided pneumonia, with rising troponin, possible NSTEMI, on heparin after initial antibiotics. He believes he was admitted overnight and discharged the next day, recalls recalls receiving aspirin, no cardiac catheterization, had ultrasound of the heart study, discharged on aspirin. He recalls having course of antibiotics completed, discharged on 5 day course of cefuroxime and azithromycin. Now having right-sided chest pain, somewhat pleuritic. No leg pain or swelling. No fevers or chills. No dizziness or weakness. No leg pain or swelling symptoms. No history of blood clots to legs or lungs recalled. Related Data Home Medications Medication Instructions Recorded Confirmed albuterol sulfate 90 mcg/actuation 2 puff inhalation Q4H PRN 01/07/25 01/07/25 aerosol inhaler Shortness Of Breath Or Wheezing aripiprazole 2 mg tablet 2 mg PO ONCE PM 01/07/25 01/07/25 clobetasol 0.05 % scalp solution topical 01/07/25 lithium carbonate 450 mg 900 mg PO ONCE PM 01/07/25 01/07/25 tablet,extended release metoprolol succinate 25 mg 25 mg PO DAILY 01/07/25 01/07/25 tablet,extended release 24 hr rosuvastatin 10 mg tablet 10 mg PO ONCE PM 01/07/25 01/07/25 sumatriptan succinate 100 mg tablet 100 mg PO DAILY PRN Migraine 01/07/25 01/07/25 Headache Allergies Allergy/AdvReac Type Severity Reaction Status Date / Time acetaminophen [From Percocet] Allergy Intermediate ITCHING Verified 01/07/25 05:31 oxycodone [From Percocet] Allergy Intermediate ITCHING Verified 01/07/25 05:31 tramadol Allergy Intermediate Rash Verified 01/07/25 05:31 Patient History Smoking Status: Former smoker Exam Narrative Exam Narrative: GENERAL: Well-developed patient, in mild distress. HEAD: Atraumatic. Normocephalic. EYES: Pupils equal round and reactive. Extraocular motions intact. No scleral icterus. No injection or drainage. ENT: Nose without bleeding, purulent drainage. Throat without erythema, tonsillar hypertrophy or exudate. Airway patent. NECK: Trachea midline. Non tender CARDIOVASCULAR: Regular rate and rhythm without murmurs, gallops, or rubs. RESPIRATORY: Clear to auscultation. Breath sounds equal bilaterally. No wheezes, rales, or rhonchi. GASTROINTESTINAL: Abdomen soft, non-tender, nondistended. EXTREMITIES: No edema or joint tenderness. BACK: Nontender without deformity or crepitance. No flank tenderness. NEURO: AOx3. Motor functions grossly nonfocal SKIN: No rash or erythema of visible areas Initial Vital Signs Initial Vital Signs: Vital Signs Pulse Rate 70 01/07/25 05:01 Respiratory Rate 24 01/07/25 05:01 Blood Pressure 159/76 H 01/07/25 05:01 Pulse Oximetry 95 01/07/25 05:01 Course Orders Ordered: ED Orders 01/07/25 04:56 XR chest 1V Stat EKG-12 Lead Stat RT Consult Eval and Treat NOW 01/07/25 05:00 Complete Blood Count AUTO DIFF Stat Comprehensive Metabolic Panel Stat Lactate (Lactic Acid) Stat Lipase Stat Magnesium Stat NT-proBNP (BNP-Adult 18+) Stat PTT Partial Thromboplastin Jass Stat Prothrombin Time INR Stat Troponin & CK Cardiac Panel Stat 01/07/25 05:48 CT angio chest PE protocol Stat Discontinued Medications Albuterol (Albuterol 2.5 Mg/3 Ml Neb (Adult)) 2.5 mg INH NOW ONE Stop: 01/07/25 05:34 Last Admin: 01/07/25 05:44 Dose: 2.5 mg Aspirin (Aspirin 81 Mg Chew Tab) 324 mg PO NOW ONE Stop: 01/07/25 04:57 Last Admin: 01/07/25 05:30 Dose: 324 mg Sodium Chloride (Normal Saline 0.9%) 1,000 mls @ 1,000 mls/hr IV BOLUS ONE Stop: 01/07/25 06:48 Last Admin: 01/07/25 06:20 Dose: 1,000 mls/hr Ketorolac Tromethamine (Ketorolac 30 Mg/Ml Vial) 15 mg IV NOW ONE Stop: 01/07/25 06:41 Morphine Sulfate (Morphine 4 Mg/Ml Inj) 4 mg IV NOW ONE Stop: 01/07/25 05:33 Last Admin: 01/07/25 05:44 Dose: 4 mg Ondansetron HCl (Ondansetron 4 Mg/2 Ml Inj) 4 mg IV NOW ONE Stop: 01/07/25 05:33 Last Admin: 01/07/25 05:35 Dose: 4 mg Vital Signs Vital signs: Vital Signs - 8 hr 01/07/25 05:01 01/07/25 05:01 01/07/25 05:12 Temperature 98.3 F Pulse Rate 70 64 Respiratory Rate 24 16 Blood Pressure 159/76 H 159/76 H Pulse Oximetry 95 94 Oxygen Delivery Method Room Air 01/07/25 05:30 01/07/25 05:30 01/07/25 05:46 Temperature Pulse Rate 69 86 Respiratory Rate 22 16 Blood Pressure 129/67 Pulse Oximetry 95 94 Oxygen Delivery Method Room Air 01/07/25 06:14 01/07/25 06:16 01/07/25 06:16 Temperature Pulse Rate 68 67 Respiratory Rate 22 Blood Pressure 118/59 L Pulse Oximetry 91 95 Oxygen Delivery Method 01/07/25 06:30 01/07/25 06:30 Temperature Pulse Rate 65 Respiratory Rate 17 Blood Pressure 111/57 L Pulse Oximetry 93 Oxygen Delivery Method Room Air Medical Decision Making Lab Data Lab results narrative: White blood cell count 77152, hemoglobin 15.3, platelets adequate. Glucose 108. BUN 15 with creatinine 0.83 normal renal function. Electrolytes unremarkable. Serum CO2 27 normal. Liver functions and lipase normal. Lactate 0.8 normal. 01/07/25 05:00 01/07/25 05:00 Labs: Lab Results 01/07/25 Range/Units 05:00 WBC 15.1 H (4.5-11.0) X10^3/uL RBC 5.06 (4.5-5.9) X10^6/uL Hgb 15.3 (13.5-17.5) g/dL Hct 44.4 (41-53) % MCV 87.7 (80-100) fL MCH 30.2 (26-34) PG MCHC 34.5 (30-36) % RDW 12.9 (11.6-14.8) % Plt Count 397 (150-400) X10^3/uL Neut % (Auto) 78.0 H (50-75) % Lymph % (Auto) 13.3 L (25-40) % [place] % (Auto) 5.3 (3-14) % Eos % (Auto) 2.6 (2-4) % Baso % (Auto) 0.8 (0-2) % Neut # (Auto) 44327 H (2506-3878) /uL Lymph # (Auto) 2000 (5152-6160) /uL [place] # (Auto) 800 (0-900) /uL Eos # (Auto) 400 (0-450) /uL Baso # (Auto) 100 (0-100) /uL PT 11.6 (9.4-12.5) SECONDS INR 1.0 (0.9-1.3) APTT 42 H (25.1-36.5) SECONDS Sodium 139 (137-145) mmol/L Potassium 4.2 (3.4-5.1) mmol/L Chloride 105 (98-107) mmol/L Carbon Dioxide 27 (22-32) mmol/L BUN 15 (9-20) mg/dL Creatinine 0.83 (0.66-1.25) mg/dL Estimated GFR > 60 (>60) mL/min BUN/Creatinine Ratio 18.1 (6-22) Glucose 108 H (70-99) mg/dL Lactate 0.8 (0.7-2.1) mmol/L Calcium 9.3 (8.4-10.2) mg/dL Magnesium 2.2 (1.6-2.3) mg/dL Total Bilirubin 0.9 (0.2-1.3) mg/dL AST 31 (17-59) IU/L ALT 47 (<50) IU/L Alkaline Phosphatase 110 (38-126) U/L Total Creatine Kinase 21 L (55-170) U/L Troponin I < 0.012 (0.01-0.034) ng/mL NT-Pro-B Natriuret Pep 88 (<450) pg/mL Total Protein 7.1 (6.3-8.2) g/dL Albumin 4.1 (3.5-5.0) g/dL Globulin 3.0 (1.7-4.1) g/dL Albumin/Globulin Ratio 1.4 (1.0-2.8) Lipase 49 (23-300) U/L ECG Data Attestation: I personally reviewed and interpreted this ECG as follows: Interpretation: 0502, normal sinus rhythm, incomplete right bundle branch block pattern. MI 154, QRS 136, QTC 461. MDM Narrative Medical decision making narrative: 74-year-old male recently admitted to [facility] with pneumonia and elevated troponins, no cardiac catheterization, discharged on 5 days cefuroxime and azithromycin completed recently, now having increasing right-sided chest pain on the side of his pneumonia. No shortness of breath. Afebrile on triage, sirs screen negative. Lungs clear, no respiratory distress. Chest x-ray, EKG labs pending. He would like pain medication, IV morphine/Zofran. Oral aspirin. EKG with incomplete right bundle branch block, initial troponin negative. Chest x-ray single view. Impressions: ?No new abnormality. Improved effusion and/or lung consolidation on the right.? See tele radiology report. Comparison noted to study 12/31/2024. Trial of albuterol. Awaiting records from [facility]. Records review. Faxed discharge summary from [facility] received/reviewed, summary: Date of admission 12/31/2024, date of service/discharge 01/01/25. Patient was transferred with right-sided pneumonia and elevated troponin, possible type 2 injury, possible non STEMI, was transferred initially on heparin and aspirin. Patient had echocardiogram, Cardiology consult, no cardiac catheterization, likely type 2 injury, discharged on aspirin. Regarding his pneumonia he was treated with IV ceftriaxone and and azithromycin from initial ED evaluation, was discharged on 5 day course cefuroxime and azithromycin. Antigen positive for strep pneumoniae. CT angiogram chest. Impressions: Negative for pulmonary embolism. Band and wedge shaped consolidation of the right middle lobe and bilateral lower lobes, atelectasis is more likely than infiltrates. Small right pleural effusion and bibasilar dependent atelectasis. Bilateral bronchial wall thickening lower lung predominant nonspecific, can be related to asthma bronchitis smoking or interstitial edema.. See tele radiology report We will add IV Toradol for pain control. No PE noted. Consolidation changes noted, possibly atelectatic. Encouraged to use his inhaler/spacer, add incentive spirometer for discharge. Discharged home with family. Follow up with PCP post hospitalization as scheduled. Return precautions discussed. Discharge Plan Departure Patient Disposition: Home Clinical Impression: Chest pain Activity Restrictions/Additional Instructions: Recent diagnosis of pneumonia with mildly elevated troponins, evaluation admission at [facility], discharged on 5 day course of residual cefuroxime in azithromycin antibiotic. Now with right-sided pleuritic like chest pain. EKG and blood test negative today. Chest x-ray showed interval improvement of right-sided infiltrates compared to previous comparison study. CT angiogram of the chest showed no blood clots to the lungs, there are some small areas of right middle lobe and bilateral lower lobe consolidation, possible atelectasis (localized collapses). Consider use of your inhaler. Consider use of incentive spirometer to help keep lung segments aerated an open. Consider use of ibuprofen as needed for pain control. Continue taking your regular medications. Follow up with your regular physician post hospitalization as planned. Prescriptions: No Action sumatriptan succinate 100 mg tablet 100 mg PO DAILY MDD 200 mg PRN (Reason: Migraine Headache) lithium carbonate 450 mg tablet extended release 900 mg PO ONCE PM metoprolol succinate 25 mg tablet extended release 24 hr 25 mg PO DAILY albuterol sulfate 90 mcg/actuation HFA aerosol inhaler 2 puff INHALATION Q4H PRN (Reason: Shortness Of Breath Or Wheezing) clobetasol 0.05 % solution TOPICAL Patient Comments: LATHER ONTO SCALP ONCE NIGHTLY FOR UP TO 2 WEEKS AT A TIME THEN IF NEEDED rosuvastatin 10 mg tablet 10 mg PO ONCE PM aripiprazole 2 mg tablet 2 mg PO ONCE PM Referrals: Hortensia Feliz MD [Primary Care Provider] - Stand Alone Forms: Patient Portal/API/Survey
[2025-01-07] MEDS: ASPIRIN 81 MG CHEW TAB 324 MG PO (05:30)
[2025-01-07] MEDS: ONDANSETRON 4 MG/2 ML INJ IV (05:35)
[2025-01-07 05:36] LABS: NT-proBNP (BNP-Adult 18+) 88 pg/mL (<450); Troponin I < 0.012 ng/mL (0.01-0.034)
[2025-01-07] MEDS: ALBUTEROL 2.5 MG/3 ML NEB (ADULT) INH (05:44)
[2025-01-07] MEDS: MORPHINE 4 MG/ML INJ IV (05:44)
--- NOTE | 2025-01-07 05:48 | DI.CT.S_ITS ---
PROCEDURE: CT ANGIO CHEST PE PROTOCOL INDICATIONS: R pleuritic CP, CXR better than 5/6 TECHNIQUE: After the administration of intravenous contrast, 2 mm thick sections acquired from the pulmonary apices to the posterior costophrenic angles. 3-dimensional maximum intensity projection (MIP) coronal and sagittal reformats were then acquired through the thorax. For radiation dose reduction, the following was used: automated exposure control, adjustment of mA and/or kV according to patient size. COMPARISON: [facility], CR, XR CHEST 2V, 12/30/2024, 11:28. [facility], CR, XR CHEST 1V, 12/31/2024, 4:50. [facility], CR, XR CHEST 1V, 01/07/2025, 5:00. FINDINGS: Image quality: Diagnostic. Pulmonary arteries: Pulmonary arteries are normal in size, and demonstrate no intraluminal filling defects to suggest central pulmonary embolism. Lower Neck: No enlarged lymph nodes. Thyroid: No thyroid nodules which require sonographic follow up, per consensus guidelines. Axillae: No enlarged lymph nodes. Chest Wall: Unremarkable. Bones: Right reverse total shoulder arthroplasty is present with associated metal artifact that mildly obscures surrounding structures. Lungs and Pleura: Small right pleural effusion. Linear and bandlike opacities are seen in the right middle and lower lobes and to a lesser extent the left lower lobe, likely related to atelectasis or scarring rather than residual consolidation. No pneumothorax. Bilateral lower lobe bronchial wall thickening. Calcified granuloma is noted in the right upper lobe. No suspicious pulmonary nodule. Heart: Heart size is normal. No pericardial effusion. Left atrial appendage occlusion device is present. LAD calcifications and stent are seen. Thoracic Vessels: No aortic aneurysm. Mediastinum and Yana: No enlarged lymph nodes. Esophagus: No wall thickening. No hiatal hernia. Upper Abdomen: Benign-appearing right renal cyst is partially imaged. Visualized upper abdomen solid organs and bowel loops appear normal. IMPRESSION: 1. No acute pulmonary embolus. 2. Previously seen right middle lobe consolidation has nearly completely resolved. Mild band like opacities in the right middle lobe and bilateral lower lobes are likely related to atelectasis or scarring rather than consolidation. 3. Small right pleural effusion. There is no significant discrepancy when compared to the overnight preliminary report. Approved by: Neftali Martinez M.D. on 01/07/2025 at 8:08
[2025-01-07] MEDS: SODIUM CHLORIDE 0.9% 1,000 ML 1000 ML IV (06:20)
[2025-01-07] MEDS: KETOROLAC 30 MG/ML VIAL 15 MG IV (07:04)
== END 2025-01-07 07:05 | disposition home or self-care (01) ==
PROVIDERS: Emergency Provider Emergency Medicine; PCP Family Medicine
DX: R07.9 Chest pain, unspecified (principal); Z86.79 Personal history of other diseases of the circulatory system
CPT/HCPCS: 36415; 71045; 71275; 80053; 82550; 83605; 83690; 83735; 83880; 84484; 85025; 85610; 85730; 93005; 93010; 94640; 96361; 96374; 96375; 99284; J1885; J2270; J2405; J7613; Q9967

== ENCOUNTER → 2025-01-27 09:30 | Outpatient (CLI) | payer MEDICARE, BC, SELFPAY ==
--- NOTE | 2025-01-27 09:33 | DI.RAD.S_ITS ---
PROCEDURE: XR CHEST 2V INDICATIONS: HX RECENT PNEUMONIA TECHNIQUE: 2 views of the chest were acquired. COMPARISON: [facility], CR, XR CHEST 1V, 01/07/2025, 5:00. [facility], CR, XR CHEST 1V, 12/31/2024, 4:50. FINDINGS: Surgical changes and devices: Right shoulder arthroplasty and ACDF hardware is partially visualized. Lungs and pleura: Resolution of prior right middle lobe opacity. Mild scarring at the right lung base. No focal pulmonary consolidations. No pleural effusions or pneumothorax. Mediastinum: Mediastinal contours are normal. Heart size is normal. Bones and chest wall: No suspicious bony abnormalities. Soft tissues appear unremarkable. IMPRESSION: Resolution of prior right middle lobe opacity. Mild scarring at the right lung base. No acute cardiopulmonary process. Dictated by: John Watson M.D. on 01/27/2025 at 13:26 Approved by: John Watson M.D. on 01/27/2025 at 13:28
== END ==
PROVIDERS: PCP Family Medicine; Referring Provider Family Medicine; Visit Provider Family Medicine
DX: Z87.01 Personal history of pneumonia (recurrent) (principal); J98.4 Other disorders of lung
CPT/HCPCS: 71046